=== PATIENT | female | born 1980 | race Hispanic/Latino ===

== ENCOUNTER 2022-09-07 10:08 | Emergency (ER) | payer MEDICAID, SELFPAY ==
[2022-09-07 10:54] VITALS: BP 145/81; PULSE 74; RESP 16; TEMP 36.2; O2SAT 98
[2022-09-07 11:15] LABS: Basophils Percent Auto 0.3 % (0.2-1.2); Eosinophils Absolute Auto 0.3 K/mm3 (0-0.3); Eosinophils Percent Auto 4.3 % (0-4.4); Hematocrit 42.2 % (37.0-47.0); Hemoglobin 13.6 g/dL (12.0-15.0); Immature Granulocyte Absolute 0.01 K/mm3 (0.00-0.031); Immature Granulocyte Percent A 0.1 % (0-0.5); Lymphocytes Percent Auto 29.8 % (18.3-44.2); Mean Corpuscular HGB Conc 32.2 g/dl (32-36); Mean Corpuscular Hemoglobin 26.7 pg (26-34); Mean Corpuscular Volume 82.9 fl (80-100); Mean Platelet Volume 9.7 fl (7.4-10.4); Monocytes Absolute Auto 0.5 K/mm3 (0.1-0.6); Neutrophils Absolute Auto 4.6 K/mm3 (1.3-6.7); Neutrophils Percent Auto 59.5 % (45.5-73.1); Platelet Count Result 368 k/mm3 (150-375); Red Blood Count 5.09 M/mm3 (4.2-5.4); Red Cell Distribution Width 12.2 % (11.5-14.5); White Blood Count 7.7 K/mm3 (4.5-10.0)
[2022-09-07 11:22] LABS: Alanine Aminotransferase 31 U/L (6-35); Albumin Level 4.2 g/dL (3.5-5.1); Alkaline Phosphatase 188 U/L (38-126); Anion Gap 6 mmol/L (8-16); Aspartate Amino Transferase 28 U/L (14-36); Bilirubin,Total 0.4 mg/dL (0.2-1.3); Blood Urea Nitrogen 14 mg/dL (7-17); Calcium 8.6 mg/dL (8.4-10.2); Carbon Dioxide 29 mmol/L (22-30); Chloride 101 mmol/L (98-107); Estimated CRCL calculation 144 ml/min; Estimated Glomerular Filt Rate > 60; Glucose 285 mg/dL (65-110); Magnesium 1.9 mg/dL (1.6-2.3); Phosphorus 3.6 mg/dL (2.5-4.5); Potassium 4.1 mmol/L (3.4-5.0); Sodium 136 mmol/L (137-145)
[2022-09-07 11:26] LABS: Beta-Hydroxybutyrate/Acetoacetate 0.19 mmol/L (0.02-0.27)
[2022-09-07 11:49] LABS: Hemoglobin A1C 11.6 % (<5.7)
[2022-09-07 12:31] VITALS: BP 137/75; PULSE 87; RESP 16; O2SAT 98
[2022-09-07] MEDS: ACETAMINOPHEN 325 MG TABLET 650 MG PO (13:14)
[2022-09-07 13:28] LABS: Appearance Urine Slightly Cloudy (Clear); Bilirubin Urine Negative (Negative); Blood Urine Negative (Negative); Color Urine Yellow (Yellow); Glucose Urine UA 2+ mg/dL (Negative); Ketones Urine 1+ mg/dL (Negative); Leukocyte Esterase Ur Trace LEU/UL (Negative); Nitrate Urine Positive (Negative); Protein Urine Trace mg/dL (Negative); Specific Grav Ur 1.015 (1.001-1.035); Urobilinogen Urine 0.2 mg/dL (<2.0); pH Urine 6.5 (5.0-9.0)
[2022-09-07 13:36] LABS: Bacteria Urine 3+ /hpf; Mucus Urine Moderate /lpf; RBC Urine 0-2 /hpf (0-2); Squamous Epithelial Cell Urine Occasional /hpf (Few); WBC Urine 0-3 /hpf
[2022-09-07 13:59] LABS: Add Urine Microscopic? YES
--- NOTE | 2022-09-07 14:03 | ED.GENADULT ---
HPI - General Adult General Chief complaint: Recheck/Abnormal Lab/Rx Stated complaint: ELEVATED SUGAR WANTS URINE CHECKED Time Seen by Provider: 09/07/22 12:31 Source: patient and appliance service representative Mode of arrival: ambulatory Limitations: language barrier History of Present Illness HPI narrative: 41-year-old Sinhala-speaking here blood sugar and urine check. Patient states that she is nondiabetic and she is on metformin ran out of her medication yesterday. Patient was admitted to the hospital in June and has not followed up with any primary doctor since then. She presently has no complaints. Related Data Allergies Allergy/AdvReac Type Severity Reaction Status Date / Time No Known Allergies Allergy Verified 09/07/22 10:53 Review of Systems Review of Systems: All systems reviewed & are unremarkable except as noted in HPI and below Constitutional: Constitutional: Reports no additional constitutional complaints Eyes: Eyes: Reports no additional eye complaints ENT: Reports system reviewed and no additional complaints, except as documented Cardiovascular: Cardiovascular: Reports no additional cardiovascular complaints Respiratory: Respiratory: Reports no additional respiratory complaints Gastrointestinal: Gastrointestinal: Reports no additional gastrointestinal complaints Genitourinary: Genitourinary: Reports no additional female genitourinary complaints Musculoskeletal: Musculoskeletal: Reports no additional musculoskeletal complaints Exam Narrative: GENERAL: Well-appearing, well-nourished, and in no acute distress. HEAD: Normocephalic, atraumatic. EYES: PERRLA and EOMI. NECK: Supple. CHEST: Clear to auscultation. No respiratory distress. HEART: Regular rate and rhythm. No murmur heard. Normal peripheral pulses. ABDOMEN: Soft, nontender, nondistended, normal active bowel sounds. EXTREMITIES: Normal range of motion. No edema. SKIN: Warm, dry, no rash. NEURO: No focal deficits. Alert and oriented x3. PSYCH: Normal mood and affect. Course Course Emergency Course: Notified patient about her lab work. Recommended to take antibiotic as prescribed Vital Signs Vital signs: Vital Signs Temperature 36.2 C L 09/07/22 10:54 Pulse Rate 74 09/07/22 10:54 Respiratory Rate 16 09/07/22 10:54 Blood Pressure 145/81 H 09/07/22 10:54 Pulse Oximetry 98 09/07/22 10:54 Temperature 36.2 C L 09/07/22 10:54 Pulse Rate 74 09/07/22 10:54 Respiratory Rate 16 09/07/22 10:54 Blood Pressure 145/81 H 09/07/22 10:54 Pulse Oximetry 98 09/07/22 10:54 Medical Decision Making Vital Signs Vital Signs: Vital Signs Temperature 36.2 C L 09/07/22 10:54 Pulse Rate 74 09/07/22 10:54 Respiratory Rate 16 09/07/22 10:54 Blood Pressure 145/81 H 09/07/22 10:54 Pulse Oximetry 98 09/07/22 10:54 Temperature 36.2 C L 09/07/22 10:54 Pulse Rate 74 09/07/22 10:54 Respiratory Rate 16 09/07/22 10:54 Blood Pressure 145/81 H 09/07/22 10:54 Pulse Oximetry 98 09/07/22 10:54 Lab Data 09/07/22 11:02 09/07/22 11:02 Labs: Lab Results 09/07/22 09/07/22 09/07/22 Range/Units 11:02 11:02 11:02 WBC 7.7 (4.5-10.0) K/mm3 RBC 5.09 (4.2-5.4) M/mm3 Hgb 13.6 (12.0-15.0) g/dL Hct 42.2 (37.0-47.0) % MCV 82.9 (80-100) fl MCH 26.7 (26-34) pg MCHC 32.2 (32-36) g/dl RDW 12.2 (11.5-14.5) % Plt Count 368 (150-375) k/mm3 MPV 9.7 (7.4-10.4) fl Immature Gran % (Auto) 0.1 (0-0.5) % Neut % (Auto) 59.5 (45.5-73.1) % Lymph % (Auto) 29.8 (18.3-44.2) % [place] % (Auto) 6.0 (2.6-8.5) % Eos % (Auto) 4.3 (0-4.4) % Baso % (Auto) 0.3 (0.2-1.2) % Lymph # (Auto) 2.30 (0.9-3.2) K/mm3 [place] # (Auto) 0.5 (0.1-0.6) K/mm3 Eos # (Auto) 0.3 (0-0.3) K/mm3 Baso # (Auto) 0.0 (0.0-0.1) K/mm3 Abs Immat Gran (auto) 0.01 (0.00-0.031) K/mm3 Absolute Neuts (auto) 4.6 (1.3-6.7) K/mm3 Abso
[2022-09-07 14:18] VITALS: BP 144/90; PULSE 76; RESP 16; O2SAT 99
[2022-09-07 15:59] LABS: Glucose Point of Care 268 mg/dl (65-105)
== END 2022-09-07 14:18 | disposition home or self-care (01) ==
PROVIDERS: Emergency Medicine; Emergency Provider Family Medicine
DX: E11.65 Type 2 diabetes mellitus with hyperglycemia (principal); N39.0 Urinary tract infection, site not specified; Z79.84 Long term (current) use of oral hypoglycemic drugs
CPT/HCPCS: 36415; 80053; 81001; 82010; 82948; 83036; 83735; 84100; 85025; 99283; A9270

== ENCOUNTER 2023-01-04 00:53 | Emergency (ER) | payer MEDICAID, SELFPAY ==
[2023-01-04] VITALS (22 sets, daily range): BP systolic 105–141; BP diastolic 59–85; PULSE 70–88; RESP 12–20; TEMP 36.8; O2SAT 93–99
--- NOTE | ~2023-01-04 | CT_ITS ---
EXAMINATION: CT abdomen pelvis w con DATE: 01/04/2023 03:56 INDICATION: Right lower quadrant abdominal pain and fevers TECHNIQUE: Computed tomography (CT) of the abdomen and pelvis was performed with 100 mL Omnipaque-350 intravenous contrast. Automated exposure control and iterative reconstruction technique were employe d. The dose-length product was 1136.71 mGy-cm. COMPARISON: None FINDINGS: Mild mosaic attenuation of the lung bases likely reflecting expiratory phase of imaging. Heart size i s normal. No pericardial or pleural effusion. Liver, gallbladder, spleen, pancreas, bilateral adrenal glands and kidneys are normal. Bladder, anteverted uterus and bladder are normal. Small phlebolith a nd 1.5 cm cyst at the left adnexa. Bowels including the appendix are normal. No free intraperitoneal gas or fluid. No pathologically enlarged abdominal or pelvic lymphadenopathy. Mild bilateral sacroili itis. IMPRESSION: 1. Normal appendix. No acute intra-abdominal/pelvic process. Reviewed, dictated and finalized at location A.
[2023-01-04 02:25] LABS: Appearance Urine Cloudy (Clear); Bacteria Urine None Seen /hpf; Bilirubin Urine Negative (Negative); Blood Urine Negative (Negative); Color Urine Yellow (Yellow); Glucose Urine UA 3+ mg/dL (Negative); Ketones Urine Negative (Negative); Leukocyte Esterase Ur Negative LEU/UL (Negative); Nitrate Urine Negative (Negative); Non Pathogenic Casts 0-2; Protein Urine Negative (Negative); RBC Urine 0-2 /hpf (0-2); Specific Grav Ur 1.022 (1.001-1.035); Squamous Epithelial Cell Urine None seen /hpf (Few); WBC Urine 0-5 /hpf
[2023-01-04 02:34] LABS: Add Urine Microscopic? YES
[2023-01-04] MEDS: SODIUM CHLORIDE 0.9% IV 1,000 ML 999 ML IV CONT (02:47)
[2023-01-04] MEDS: ONDANSETRON INJ 4 MG/2 ML VIAL IV PUSH (02:49)
[2023-01-04 02:56] LABS: Basophils Percent Auto 0.2 % (0.2-1.2); Eosinophils Absolute Auto 0.2 K/mm3 (0-0.3); Eosinophils Percent Auto 2.1 % (0-4.4); Hematocrit 42.9 % (37.0-47.0); Hemoglobin 14.2 g/dL (12.0-15.0); Immature Granulocyte Absolute 0.02 K/mm3 (0.00-0.031); Immature Granulocyte Percent A 0.2 % (0-0.5); Lymphocytes Absolute Auto 1.04 K/mm3 (0.9-3.2); Lymphocytes Percent Auto 11.5 % (18.3-44.2); Mean Corpuscular HGB Conc 33.1 g/dl (32-36); Mean Corpuscular Hemoglobin 27.7 pg (26-34); Mean Corpuscular Volume 83.8 fl (80-100); Mean Platelet Volume 9.7 fl (7.4-10.4); Monocytes Absolute Auto 0.6 K/mm3 (0.1-0.6); Monocytes Percent Auto 6.6 % (2.6-8.5); Neutrophils Absolute Auto 7.2 K/mm3 (1.3-6.7); Neutrophils Percent Auto 79.4 % (45.5-73.1); Platelet Count Result 336 k/mm3 (150-375); Red Blood Count 5.12 M/mm3 (4.2-5.4); Red Cell Distribution Width 13.2 % (11.5-14.5)
--- NOTE | 2023-01-04 03:03 | ED.GENADULT ---
HPI - General Adult General Chief complaint: Urogenital-Female Stated complaint: flank pain Time Seen by Provider: 01/04/23 02:14 Related Data Allergies Allergy/AdvReac Type Severity Reaction Status Date / Time No Known Allergies Allergy Verified 09/07/22 10:53 Course Vital Signs Vital signs: Vital Signs Temperature 98.2 F 01/04/23 00:54 Pulse Rate 88 01/04/23 00:54 Respiratory Rate 20 01/04/23 00:54 Blood Pressure 130/73 01/04/23 00:54 Pulse Oximetry 99 01/04/23 00:54 Oxygen Delivery Room Air 01/04/23 00:54 Temperature 98.2 F 01/04/23 00:54 Pulse Rate 88 01/04/23 00:54 Respiratory Rate 20 01/04/23 00:54 Blood Pressure 130/73 01/04/23 00:54 Pulse Oximetry 99 01/04/23 00:54 Oxygen Delivery Room Air 01/04/23 00:54 Medical Decision Making Vital Signs Vital Signs: Vital Signs Temperature 98.2 F 01/04/23 00:54 Pulse Rate 88 01/04/23 00:54 Respiratory Rate 20 01/04/23 00:54 Blood Pressure 130/73 01/04/23 00:54 Pulse Oximetry 99 01/04/23 00:54 Oxygen Delivery Room Air 01/04/23 00:54 Temperature 98.2 F 01/04/23 00:54 Pulse Rate 88 01/04/23 00:54 Respiratory Rate 20 01/04/23 00:54 Blood Pressure 130/73 01/04/23 00:54 Pulse Oximetry 99 01/04/23 00:54 Oxygen Delivery Room Air 01/04/23 00:54 Lab Data 01/04/23 02:50 01/04/23 02:50 Labs: Lab Results 01/04/23 01/04/23 01/04/23 Range/Units 02:14 02:14 02:50 WBC 9.0 (4.5-10.0) K/mm3 RBC 5.12 (4.2-5.4) M/mm3 Hgb 14.2 (12.0-15.0) g/dL Hct 42.9 (37.0-47.0) % MCV 83.8 (80-100) fl MCH 27.7 (26-34) pg MCHC 33.1 (32-36) g/dl RDW 13.2 (11.5-14.5) % Plt Count 336 (150-375) k/mm3 MPV 9.7 (7.4-10.4) fl Immature Gran % (Auto) 0.2 (0-0.5) % Neut % (Auto) 79.4 H (45.5-73.1) % Lymph % (Auto) 11.5 L (18.3-44.2) % [place] % (Auto) 6.6 (2.6-8.5) % Eos % (Auto) 2.1 (0-4.4) % Baso % (Auto) 0.2 (0.2-1.2) % Lymph # (Auto) 1.04 (0.9-3.2) K/mm3 [place] # (Auto) 0.6 (0.1-0.6) K/mm3 Eos # (Auto) 0.2 (0-0.3) K/mm3 Baso # (Auto) 0.0 (0.0-0.1) K/mm3 Abs Immat Gran (auto) 0.02 (0.00-0.031) K/mm3 Absolute Neuts (auto) 7.2 H (1.3-6.7) K/mm3 Absolute Nucleated RBC 0.0 (0.0-0.012) K/mm3 Nucleated RBC % 0.0 (0.0-0.2) % Sodium Potassium Chloride Carbon Dioxide Anion Gap BUN Creatinine Estim Creat Clear Calc Estimated GFR Glucose Calcium Total Bilirubin AST ALT Alkaline Phosphatase Total Protein Albumin Lipase Urine Color Yellow (Yellow) Urine Appearance Cloudy H (Clear) Urine pH 8.0 (5.0-9.0) Ur Specific [place] 1.022 (1.001-1.035) Urine Protein Negative (Negative) mg/dL Urine Glucose (UA) 3+ H (Negative) mg/dL Urine Ketones Negative (Negative) mg/dL Ur Blood (Man) Negative (Negative) Urine Nitrate Negative (Negative) Urine Bilirubin Negative (Negative) Urine Urobilinogen 1.0 (<2.0) mg/dL Leukocyte Esterase Rfl Negative (Negative) JABARI/UL Urine RBC 0-2 (0-2) /hpf Urine WBC 0-5 /hpf Ur Squamous Epith Cells None seen (Few) /hpf Urine Bacteria None seen /hpf Urine Casts 0-2 Urine Test Pending Influenza A (RT-PCR) Influenza B (RT-PCR) SARS-CoV-2 RNA (RT-PCR) 01/04/23 01/04/23 01/04/23 Range/Units 02:50 02:50 02:50 WBC (4.5-10.0) K/mm3 RBC (4.2-5.4) M/mm3 Hgb (12.0-15.0) g/dL Hct (37.0-47.0) % MCV (80-100) fl MCH (26-34) pg MCHC (32-36) g/dl RDW (11.5-14.5) % Plt Count (150-375) k/mm3 MPV (7.4-10.4) fl Immature Gran % (Auto) (0-0.5) % Neut % (Auto) (45.5-73.1) % Lymph % (Auto) (18.3-44.2) % [place] % (Auto) (2.6-8.5) % Eos % (Auto) (0-4.4) % Baso % (Auto) (0.2-1.2
--- NOTE | 2023-01-04 03:04 | ED.FEMALEGU ---
HPI - Female Genitourinary General Chief complaint: Urogenital-Female <Hiral Roque PA-C - Last Filed: 01/04/23 03:07> Stated complaint: flank pain <Hiral Roque PA-C - Last Filed: 01/04/23 03:07> Time Seen by Provider: 01/04/23 02:14 <Hiral Roque PA-C - Last Filed: 01/04/23 03:07> History of Present Illness HPI Narrative: Patient is a 42-year-old female with a history of diabetes here due to multiple medical complaints. Patient states she has a diffuse frontal headache that developed gradually throughout the day, pain in her right flank and right lower quadrant, and nausea. Patient states that she has felt unwell all day, she took Tylenol this morning without relief of her symptoms. She reports subjective fevers but has not yet taken her temperature. She has a history of diabetes and has not taken her metformin for the past 4 months because she does not have a primary doctor to refill it. She denies any shortness of breath, cough, congestion, upper respiratory infectious symptoms. <ESTIVEN Jack Last Filed: 01/04/23 03:07> Related Data Allergies/Adverse reactions: Allergies Allergy/AdvReac Type Severity Reaction Status Date / Time No Known Allergies Allergy Verified 09/07/22 10:53 <ESTIVEN Jack Last Filed: 01/04/23 03:07> Review of Systems Review of Systems: All systems reviewed & are unremarkable except as noted in HPI and below <ESTIVEN Jack Last Filed: 01/04/23 03:07> Exam Narrative: APPEARANCE: Well appearing, no pain in distress, well-nourished. Head: Normocephalic and atraumatic. EYES: PERRLA/EOMI, conjunctivae clear NOSE: No nasal drainage EARS: External ear normal in appearance THROAT: Oropharynx is clear. Mucous membranes are moist. NECK: Supple. No adenopathy, no masses. RESPIRATORY: Airway patent, respirations nonlabored. Clear to auscultation bilaterally, no rales, rhonchi, wheezing. CARDIOVASCULAR: Regular rate and rhythm without murmurs, rubs, or gallops. ABDOMINAL: Tender to palpation in the right lower quadrant with moderate guarding but no rebound tenderness. No CVA tenderness. MUSCULOSKELETAL: Extremities are warm and well-perfused. Moves all extremities well. No edema. NEURO: Normal speech. No focal neurologic deficits. SKIN: Skin is warm and dry. No rashes. PSYCHIATRIC: Normal affect/mood. <Hiral Roque PA-C - Last Filed: 01/04/23 03:07> Course Vital Signs Vital signs: Vital Signs Temperature 98.2 F 01/04/23 00:54 Pulse Rate 88 01/04/23 00:54 Respiratory Rate 20 01/04/23 00:54 Blood Pressure 130/73 01/04/23 00:54 Pulse Oximetry 99 01/04/23 00:54 Oxygen Delivery Room Air 01/04/23 00:54 Temperature 98.2 F 01/04/23 00:54 Pulse Rate 78 01/04/23 07:33 Respiratory Rate 12 01/04/23 07:33 Blood Pressure 114/65 01/04/23 07:33 Pulse Oximetry 98 01/04/23 07:33 Oxygen Delivery Room Air 01/04/23 00:54 <Hiral Roque PA-C - Last Filed: 01/04/23 03:07> Vital Signs Temperature 98.2 F 01/04/23 00:54 Pulse Rate 88 01/04/23 00:54 Respiratory Rate 20 01/04/23 00:54 Blood Pressure 130/73 01/04/23 00:54 Pulse Oximetry 99 01/04/23 00:54 Oxygen Delivery Room Air 01/04/23 00:54 Temperature 98.2 F 01/04/23 00:54 Pulse Rate 78 01/04/23 07:33 Respiratory Rate 12 01/04/23 07:33 Blood Pressure 114/65 01/04/23 07:33 Pulse Oximetry 98 01/04/23 07:33 Oxygen Delivery Room Air 01/04/23 00:54 <Louis Strickland MD - Last Filed: 01/04/23 08:03> MDM - Female Genitourinary MDM Narrative Medical decision making narrative: 42-year-old female here due to headache, nausea, fevers at home. She is nontoxic in appearance and has normal vital signs, she is afebrile here. She has no nuchal rigidity on exam or neurologic deficits to suggest more concerning etiology of headache. She is tender
[2023-01-04 03:06] LABS: Pregnancy On Board Control Positive; Urine Pregnancy Test Negative
[2023-01-04 03:20] LABS: Alanine Aminotransferase 28 U/L (6-35); Alkaline Phosphatase 176 U/L (38-126); Anion Gap 7 mmol/L (8-16); Aspartate Amino Transferase 29 U/L (14-36); Bilirubin,Total 0.5 mg/dL (0.2-1.3); Blood Urea Nitrogen 9 mg/dL (7-17); Calcium 8.4 mg/dL (8.4-10.2); Carbon Dioxide 26 mmol/L (22-30); Chloride 99 mmol/L (98-107); Estimated CRCL calculation 145 ml/min; Estimated Glomerular Filt Rate > 60; Glucose 335 mg/dL (65-110); Lipase 77 U/L (23-300); Potassium 3.9 mmol/L (3.4-5.0); Sodium 132 mmol/L (137-145)
[2023-01-04 03:31] LABS: Influenza A QL RT-PCR Negative (Negative); Influenza B QL RT-PCR Negative (Negative); SARS-CoV-2 RNA PCR Negative
[2023-01-04] MEDS: HYDROcodone/acetaminophen (*CRX) 5-325 MG TABLET 2 TAB PO (04:27)
== END 2023-01-04 09:00 | disposition home or self-care (01) ==
PROVIDERS: Physician Assistant; Emergency Provider Emergency Medicine
DX: J02.9 Acute pharyngitis, unspecified (principal); E11.9 Type 2 diabetes mellitus without complications; Z20.822 Contact with and (suspected) exposure to COVID-19
CPT/HCPCS: 36415; 74177; 80053; 81001; 81025; 83690; 85025; 87636; 96361; 96365; 96375; 99284; A9270; J0131; J2405; J7030; Q9967

== ENCOUNTER 2023-03-30 18:10 | Emergency (ER) | payer MEDICAID, SELFPAY ==
--- NOTE | ~2023-03-30 | CT_ITS ---
EXAMINATION: CT abdomen pelvis w con DATE: 03/30/2023 21:11 INDICATION: RUQ/R flank pain TECHNIQUE: Computed tomography (CT) of the abdomen and pelvis was performed with 100 mL Omnipaque-350 intravenous contrast. Automated exposure control and iterative reconstruction technique were employe d. The dose-length product was 1338.52 mGy-cm. COMPARISON: 01/04/2023. FINDINGS: Lower thorax: Mild cardiomegaly. Small hiatal hernia. Dilated central pulmonary arteries, as can be s een with pulmonary arterial hypertension. Liver: Normal. Biliary/Gallbladder: Gallbladder is normal. No bile duct dilation. Pancreas: No mass or duct dilation. Spleen: Normal. Adrenals:No mass. Kidneys: No mass, stone, or hydronephrosis. GI tract: Mild distal esophageal edema. Small hiatal hernia No small or large bowel dilation. Normal appendix. Mesentery/Peritoneum: No ascites, mass, or free air. Retroperitoneum: No mass. Pelvis: 8 mm calcification, likely with an associated 1.5 cm cyst, presumably within the left ovary P elvic organs are otherwise within normal limits. Soft Tissues: Soft tissues and body wall unremarkable. Bones: No acute osseous finding. IMPRESSION: Mild esophagitis. No other acute abdominopelvic process detected. Possible small left ovarian dermoid , consider outpatient pelvic ultrasound for more complete characterization. Reviewed, dictated and finalized at [facility]. IMPRESSION: Mild esophagitis. No other acute abdominopelvic process detected. Possible smal l left ovarian dermoid, consider outpatient pelvic ultrasound for more complete characterization.
[2023-03-30 18:34] VITALS: BP 148/72; PULSE 88; RESP 16; TEMP 36.3; O2SAT 99
[2023-03-30 19:43] LABS: Appearance Urine Clear (Clear); Bilirubin Urine Negative (Negative); Blood Urine Negative (Negative); Color Urine Yellow (Yellow); Glucose Urine UA 3+ mg/dL (Negative); Ketones Urine Negative (Negative); Leukocyte Esterase Ur Negative LEU/UL (Negative); Nitrate Urine Negative (Negative); Protein Urine Negative (Negative); pH Urine 5.5 (5.0-9.0)
[2023-03-30 19:54] LABS: Specific Grav Ur 1.039 (1.001-1.035)
[2023-03-30 19:55] LABS: Add Urine Microscopic? NO; Pregnancy On Board Control Positive; Urine Pregnancy Test Negative
--- NOTE | 2023-03-30 20:16 | ED.FEMALEGU ---
HPI - Female Genitourinary General Chief complaint: Urogenital-Female Stated complaint: flank pain Time Seen by Provider: 03/30/23 19:17 History of Present Illness HPI Narrative: Patient is a 42-year-old female presenting with abdominal pain. Patient states that for the last 3 weeks she has had right upper quadrant pain that goes into her right flank. States that it feels similarly to an episode that she had earlier this year that was a UTI. States that she has also had a lot of dark smelly urine. States that she felt nauseated the other day but has not had any vomiting. States that she has been constipated. No fevers, headache, chest pain, shortness of breath, cough, leg swelling. Patient is Colombian-speaking and history was obtained using an foreign language interpreter. Related Data Allergies Allergy/AdvReac Type Severity Reaction Status Date / Time No Known Allergies Allergy Verified 09/07/22 10:53 Review of Systems Review of Systems: All systems reviewed & are unremarkable except as noted in HPI and below Exam Narrative: GENERAL: Well-appearing, well-nourished, and in no acute distress. HEAD: Normocephalic, atraumatic. EYES: PERRLA and EOMI. ENT: Nares clear, no rhinorrhea or epistaxis. Mucous membranes moist. NECK: Supple. CHEST: Clear to auscultation. No respiratory distress. HEART: Regular rate and rhythm ABDOMEN: Soft, + mild right upper quadrant tenderness as well as right flank tenderness, no guarding or rebound EXTREMITIES: Normal range of motion. No edema. SKIN: Warm, dry, no rash. NEURO: No focal deficits. Alert and oriented x3. PSYCH: Normal mood and affect. Course Vital Signs Vital signs: Vital Signs Temperature 97.4 F L 03/30/23 18:34 Pulse Rate 88 03/30/23 18:34 Respiratory Rate 16 03/30/23 18:34 Blood Pressure 148/72 H 03/30/23 18:34 Pulse Oximetry 99 03/30/23 18:34 Oxygen Delivery Room Air 03/30/23 18:34 Temperature 97.4 F L 03/30/23 18:34 Pulse Rate 78 03/30/23 23:23 Respiratory Rate 16 03/30/23 23:23 Blood Pressure 149/86 H 03/30/23 23:23 Pulse Oximetry 98 03/30/23 23:23 Oxygen Delivery Room Air 03/30/23 18:34 MDM - Female Genitourinary MDM Narrative Medical decision making narrative: Patient is a 42-year-old female presenting with several weeks of intermittent right upper quadrant and right flank pain. Vitals within normal limits. Exam remarkable for the above. She is a bit tender on exam in her right upper quadrant as well as her right flank. Plan for blood work, CT abdomen pelvis, fluids, pain control. Blood work with hyperglycemia. No other abnormalities. No evidence of DKA. Renal function is normal. Lipase is normal. CT abdomen pelvis with esophagitis. On reevaluation, the patient is resting comfortably. She denies any pain at this time. She feels comfortable going home. We will get her started on Pepcid. Advise close PCP follow-up to ensure improvement in her symptoms and also try to get her blood sugars better under control. Appropriate return precautions given. Patient voiced understanding and is agreeable with plan. Discharged in stable condition. Differential Diagnosis Differential diagnosis: Likely urinary tract infection, cystitis and other (abdominal pain, cholecystitis, appendicitis, esophagitis, gastritis) Medical Records Attestation: I reviewed the patient's medical records. Lab Data Attestation: I reviewed the patient's lab results. 03/30/23 20:29 03/30/23 20:29 Labs: Lab Results 03/30/23 03/30/23 Range/Units 19:30 20:29 WBC 8.3 (4.5-10.0) K/mm3 RBC 5.02 (4.2-5.4) M/mm3 Hgb 13.9 (12.0-15.0) g/dL Hct 42.6 (37.0-47.0) % MCV 84.9 (80-100) fl MCH 27.7 (26-34) pg MCHC 32.6 (32-36) g/dl RDW 12.9 (11.5-14.5) % Plt Count 351 (150-375) k/mm3 MPV 9.4 (7.4-10.4) fl Immature Gran % (Auto) 0.2 (0-0.5) % Neut % (Auto) 46.9 (45.5-73.1) % Lymph % (Auto
[2023-03-30 20:35] LABS: Basophils Percent Auto 0.1 % (0.2-1.2); Eosinophils Absolute Auto 0.7 K/mm3 (0-0.3); Eosinophils Percent Auto 8.8 % (0-4.4); Hematocrit 42.6 % (37.0-47.0); Hemoglobin 13.9 g/dL (12.0-15.0); Immature Granulocyte Absolute 0.02 K/mm3 (0.00-0.031); Immature Granulocyte Percent A 0.2 % (0-0.5); Lymphocytes Absolute Auto 3.19 K/mm3 (0.9-3.2); Lymphocytes Percent Auto 38.2 % (18.3-44.2); Mean Corpuscular HGB Conc 32.6 g/dl (32-36); Mean Corpuscular Hemoglobin 27.7 pg (26-34); Mean Corpuscular Volume 84.9 fl (80-100); Mean Platelet Volume 9.4 fl (7.4-10.4); Monocytes Absolute Auto 0.5 K/mm3 (0.1-0.6); Monocytes Percent Auto 5.8 % (2.6-8.5); Neutrophils Absolute Auto 3.9 K/mm3 (1.3-6.7); Neutrophils Percent Auto 46.9 % (45.5-73.1); Platelet Count Result 351 k/mm3 (150-375); Red Blood Count 5.02 M/mm3 (4.2-5.4); Red Cell Distribution Width 12.9 % (11.5-14.5); White Blood Count 8.3 K/mm3 (4.5-10.0)
[2023-03-30] MEDS: SODIUM CHLORIDE 0.9% IV 1,000 ML 999 ML IV CONT (20:39)
[2023-03-30] MEDS: KETOROLAC 15 MG/ML VIAL (*BKC) IV PUSH (20:39)
[2023-03-30 20:45] LABS: Alanine Aminotransferase 27 U/L (6-35); Albumin Level 4.1 g/dL (3.5-5.1); Alkaline Phosphatase 137 U/L (38-126); Anion Gap 6 mmol/L (8-16); Aspartate Amino Transferase 29 U/L (14-36); Bilirubin,Total 0.2 mg/dL (0.2-1.3); Blood Urea Nitrogen 12 mg/dL (7-17); Carbon Dioxide 30 mmol/L (22-30); Chloride 98 mmol/L (98-107); Estimated CRCL calculation 128 ml/min; Estimated Glomerular Filt Rate > 60; Glucose 351 mg/dL (65-110); Lipase 92 U/L (23-300); Potassium 3.6 mmol/L (3.4-5.0); Sodium 134 mmol/L (137-145)
[2023-03-30] MEDS: FAMOTIDINE 20 MG TABLET PO (22:46)
[2023-03-30 23:23] VITALS: BP 149/86; PULSE 78; RESP 16; O2SAT 98
== END 2023-03-30 23:24 | disposition home or self-care (01) ==
PROVIDERS: Emergency Provider Emergency Medicine
DX: K20.90 Esophagitis, unspecified without bleeding (principal)
CPT/HCPCS: 36415; 74177; 80053; 81003; 81025; 83690; 85025; 96361; 96374; 99284; A9270; J1885; J7030; Q9967

== ENCOUNTER 2023-04-26 07:39 | Emergency (ER) | payer MEDICAID, SELFPAY ==
[2023-04-26 07:42] VITALS: BP 125/75; PULSE 69; RESP 16; TEMP 36.6; O2SAT 100
[2023-04-26 08:00] LABS: Glucose Point of Care 250 mg/dl (65-105)
[2023-04-26 08:17] VITALS: BP 123/78; PULSE 65; RESP 16; O2SAT 97
[2023-04-26 08:25] LABS: Appearance Urine Cloudy (Clear); Bacteria Urine 4+ /hpf; Bilirubin Urine 1+ (Negative); Blood Urine Negative (Negative); Color Urine Dark Yellow (Yellow); Glucose Urine UA 3+ mg/dL (Negative); Ketones Urine Trace mg/dL (Negative); Leukocyte Esterase Ur 1+ LEU/UL (Negative); Need Manual Microscopic Reviewed; Nitrate Urine Positive (Negative); Protein Urine 1+ mg/dL (Negative); Squamous Epithelial Cell Urine Moderate /hpf (Few); WBC Urine 51-100 /hpf; pH Urine 5.5 (5.0-9.0)
[2023-04-26 08:27] LABS: Specific Grav Ur 1.036 (1.001-1.035)
[2023-04-26 08:28] LABS: Add Urine Microscopic? YES
[2023-04-26] MEDS: SODIUM CHLORIDE 0.9% IV 1,000 ML 999 ML IV CONT (08:34)
[2023-04-26 08:36] LABS: Basophils Percent Auto 0.3 % (0.2-1.2); Eosinophils Absolute Auto 0.3 K/mm3 (0-0.3); Eosinophils Percent Auto 4.1 % (0-4.4); Hematocrit 40.8 % (37.0-47.0); Hemoglobin 13.3 g/dL (12.0-15.0); Immature Granulocyte Absolute 0.02 K/mm3 (0.00-0.031); Immature Granulocyte Percent A 0.3 % (0-0.5); Lymphocytes Absolute Auto 3.64 K/mm3 (0.9-3.2); Lymphocytes Percent Auto 50.1 % (18.3-44.2); Mean Corpuscular HGB Conc 32.6 g/dl (32-36); Mean Corpuscular Hemoglobin 27.7 pg (26-34); Mean Platelet Volume 9.5 fl (7.4-10.4); Monocytes Absolute Auto 0.4 K/mm3 (0.1-0.6); Monocytes Percent Auto 5.8 % (2.6-8.5); Neutrophils Absolute Auto 2.9 K/mm3 (1.3-6.7); Neutrophils Percent Auto 39.4 % (45.5-73.1); Platelet Count Result 339 k/mm3 (150-375); Red Cell Distribution Width 13.2 % (11.5-14.5); White Blood Count 7.3 K/mm3 (4.5-10.0)
--- NOTE | 2023-04-26 08:44 | ED.FEMALEGU ---
HPI - Female Genitourinary General Chief complaint: Urogenital-Female Stated complaint: need rx/walker/burning with urination Time Seen by Provider: 04/26/23 08:43 Source: patient History of Present Illness HPI Narrative: 42 years old female presented decannulation presents with burning urination for the last 10 days. She denies any fever, chills, nausea or vomiting, abdominal pain or back pain. Related Data Allergies Allergy/AdvReac Type Severity Reaction Status Date / Time No Known Allergies Allergy Verified 04/26/23 07:41 Review of Systems Review of Systems: All systems reviewed & are unremarkable except as noted in HPI and below Exam Narrative: General appearance: Well-developed, well-nourished Skin: Normal color Head: Normocephalic, nontraumatic Eyes: Clear conjunctiva ENT: Oropharynx normal, ears normal, nose normal Neck: Supple, nontender Chest and respiratory: Airway patent, no respiratory distress, no accessory muscle use Heart: Regular rate/rhythm Abdomen: Soft, nontender, no organomegaly, quiet bowel sounds Vascular: Normal peripheral pulses, normal capillary refill. Musculoskeletal: Normal range of motion, nontender back Neurologic: Alert and oriented ?3, DOG BREEDER is normal as tested, no gross motor deficit Course Vital Signs Vital signs: Vital Signs Temperature 36.6 C 04/26/23 07:42 Pulse Rate 69 04/26/23 07:42 Respiratory Rate 16 04/26/23 07:42 Blood Pressure 125/75 04/26/23 07:42 Pulse Oximetry 100 04/26/23 07:42 Oxygen Delivery Room Air 04/26/23 07:42 Temperature 36.6 C 04/26/23 07:42 Pulse Rate 61 04/26/23 09:14 Respiratory Rate 16 04/26/23 09:14 Blood Pressure 133/76 04/26/23 09:14 Pulse Oximetry 98 04/26/23 09:14 Oxygen Delivery Room Air 04/26/23 07:42 MDM - Female Genitourinary MDM Narrative Medical decision making narrative: Patient presents with burning urination for the last few days, is diabetic, ran out of her metformin. Work-up today include CBC, CMP, UA showed severe urinary tract infection, 1 g of Rocephin IV given, 1 L of IV fluid given, patient to be discharged on Cipro 500 twice daily for 7 days. Metformin refill 1000 mg twice daily. Differential Diagnosis Differential diagnosis: Likely urinary tract infection and cystitis Medical Records Attestation: I reviewed the patient's medical records. Lab Data Attestation: I reviewed the patient's lab results. 04/26/23 08:28 04/26/23 08:28 Labs: Lab Results 04/26/23 04/26/23 04/26/23 Range/Units 07:57 08:01 08:28 WBC 7.3 (4.5-10.0) K/mm3 RBC 4.80 (4.2-5.4) M/mm3 Hgb 13.3 (12.0-15.0) g/dL Hct 40.8 (37.0-47.0) % MCV 85.0 (80-100) fl MCH 27.7 (26-34) pg MCHC 32.6 (32-36) g/dl RDW 13.2 (11.5-14.5) % Plt Count 339 (150-375) k/mm3 MPV 9.5 (7.4-10.4) fl Immature Gran % (Auto) 0.3 (0-0.5) % Neut % (Auto) 39.4 L (45.5-73.1) % Lymph % (Auto) 50.1 H (18.3-44.2) % [place] % (Auto) 5.8 (2.6-8.5) % Eos % (Auto) 4.1 (0-4.4) % Baso % (Auto) 0.3 (0.2-1.2) % Lymph # (Auto) 3.64 H (0.9-3.2) K/mm3 [place] # (Auto) 0.4 (0.1-0.6) K/mm3 Eos # (Auto) 0.3 (0-0.3) K/mm3 Baso # (Auto) 0.0 (0.0-0.1) K/mm3 Abs Immat Gran (auto) 0.02 (0.00-0.031) K/mm3 Absolute Neuts (auto) 2.9 (1.3-6.7) K/mm3 Absolute Nucleated RBC 0.0 (0.0-0.012) K/mm3 Nucleated RBC % 0.0 (0.0-0.2) % Sodium 135 L (137-145) mmol/L Potassium 3.6 (3.4-5.0) mmol/L Chloride 100 (98-107) mmol/L Carbon Dioxide 28 (22-30) mmol/L Anion Gap 7 L (8-16) mmol/L BUN 13 (7-17) mg/dL Creatinine
[2023-04-26 08:47] LABS: Alanine Aminotransferase 27 U/L (6-35); Albumin Level 3.9 g/dL (3.5-5.1); Alkaline Phosphatase 143 U/L (38-126); Anion Gap 7 mmol/L (8-16); Aspartate Amino Transferase 27 U/L (14-36); Bilirubin,Total 0.5 mg/dL (0.2-1.3); Blood Urea Nitrogen 13 mg/dL (7-17); Calcium 8.3 mg/dL (8.4-10.2); Carbon Dioxide 28 mmol/L (22-30); Chloride 100 mmol/L (98-107); Estimated Glomerular Filt Rate > 60; Glucose 267 mg/dL (65-110); Potassium 3.6 mmol/L (3.4-5.0); Sodium 135 mmol/L (137-145)
[2023-04-26 09:14] VITALS: BP 133/76; PULSE 61; RESP 16; O2SAT 98
[2023-04-26 09:52] VITALS: BP 125/79; PULSE 62; RESP 16; O2SAT 95
== END 2023-04-26 09:57 | disposition home or self-care (01) ==
PROVIDERS: Emergency Provider Emergency Medicine
DX: N39.0 Urinary tract infection, site not specified (principal); E11.69 Type 2 diabetes mellitus with other specified complication; Z91.148 Patient's other noncompliance with medication regimen for other reason; T38.3X6A Underdosing of insulin and oral hypoglycemic [antidiabetic] drugs, initial encounter
CPT/HCPCS: 36415; 80053; 81001; 81025; 82948; 85025; 87077; 87086; 87186; 96361; 96365; 99284; J0696; J7030

== ENCOUNTER 2023-06-28 15:30 | Outpatient (CLI) | payer MEDICAID, SELFPAY ==
--- NOTE | ~2023-06-28 | XR_ITS ---
EXAMINATION: XR knee RT 3V DATE: 06/28/2023 16:01 INDICATION: Right knee pain. TECHNIQUE: 3 views of right knee including standing views were obtained. COMPARISON: None. FINDINGS: Bone alignment is normal. No fracture. There is mild tricompartmental osteoarthritis. There is a small knee joint effusion. IMPRESSION: 1. Mild right knee osteoarthritis. 2. Small right knee joint effusion. Reviewed, dictated and finalized at location E.
== END 2023-06-28 15:31 | disposition home or self-care (01) ==
PROVIDERS: PCP Physician Assistant; Visit Provider Physician Assistant
DX: M17.11 Unilateral primary osteoarthritis, right knee (principal); M25.461 Effusion, right knee
CPT/HCPCS: 73562

== ENCOUNTER 2024-10-23 11:39 | Emergency (ER) | payer OTHER, SELFPAY ==
--- NOTE | ~2024-10-23 | XR_ITS ---
EXAMINATION: XR lumbar spine 2-3V DATE: 10/23/2024 15:42 INDICATION: Back pain. Fall. TECHNIQUE: 3 views of lumbar spine were obtained. COMPARISON: None. FINDINGS: Alignment is normal. Vertebral body heights and intervertebral disc heights are normal. The facet joints are unremarkable. IMPRESSION: 1. Normal lumbar spine. Reviewed, dictated and finalized at location B. [employer] PROFESSOR OF COUNSELING IMPRESSION: 1. Normal lumbar spine.
--- NOTE | ~2024-10-23 | XR_ITS ---
EXAMINATION: XR sacrum coccyx min 2V DATE: 10/23/2024 15:42 INDICATION: Back pain. Fall. TECHNIQUE: 3 views of the sacrum and coccyx were obtained. COMPARISON: None. FINDINGS: Alignment is normal. No fracture. There is mild osteoarthritis of the sacroiliac joints. IMPRESSION: 1. No fracture. Reviewed, dictated and finalized at location B. CTOR OF FINANCIAL REPORTING IMPRESSION: 1. No fracture.
[2024-10-23 11:46] VITALS: BP 165/66; PULSE 76; RESP 16; TEMP 36.7; O2SAT 98
[2024-10-23] MEDS: ORPHENADRINE CITRATE 100 MG TABLET.ER PO (15:23)
[2024-10-23] MEDS: KETOROLAC (*BKC) 60 MG/2 ML VIAL IM (15:23)
[2024-10-23 15:25] LABS: BEDSIDEPREGUCG Negative (Negative)
[2024-10-23 15:32] LABS: Add Urine Microscopic? NO; Appearance Urine Clear (Clear); Bilirubin Urine Negative (Negative); Blood Urine Negative (Negative); Color Urine Yellow (Yellow); Glucose Urine UA 3+ mg/dL (Negative); Ketones Urine Negative (Negative); Leukocyte Esterase Ur Negative LEU/UL (Negative); Nitrate Urine Negative (Negative); Protein Urine Negative (Negative); Specific Grav Ur 1.042 (1.001-1.035)
--- NOTE | 2024-10-23 15:34 | ED_ITS ---
HPI - General Adult General Chief complaint: Fall Stated complaint: fall 5 days ago Time Seen by Provider: 10/23/24 14:26 History of Present Illness HPI narrative: Patient 39 very old female who presents emergency department with chief complaint of low back and buttock pain patient reports 5 days ago she fell down stairs reports no head injury denies loss of consciousness reports that she has pain in her low back and her pelvis that radiates down right gluteal area. Patient denies bowel or bladder incontinence denies numbness or tingling denies footdrop Related Data Allergies Allergy/AdvReac Type Severity Reaction Status Date / Time No Known Allergies Allergy Verified 10/23/24 14:36 Review of Systems Review of Systems: A 10 system review of systems was completed on the patient and is negative except for what is stated in the HPI. Nursing and ancillary documentation was reviewed. Exam Narrative: GENERAL: Well-appearing, well-nourished, and in no acute distress. HEAD: Normocephalic, atraumatic. EYES: PERRLA and EOMI. ENT: Nares clear, no rhinorrhea or epistaxis. Mucous membranes moist. NECK: Supple. CHEST: Clear to auscultation. No respiratory distress. HEART: Regular rate and rhythm. No murmur heard. Normal peripheral pulses. ABDOMEN: Soft, nontender, nondistended, normal active bowel sounds. EXTREMITIES: Normal range of motion. No edema. SKIN: Warm, dry, no rash. NEURO: No focal deficits. Alert and oriented x3. PSYCH: Normal mood and affect. Course Vital Signs Vital signs: Vital Signs Temperature 36.7 C 10/23/24 11:46 Pulse Rate 76 10/23/24 11:46 Respiratory Rate 16 10/23/24 11:46 Blood Pressure 165/66 H 10/23/24 11:46 Pulse Oximetry 98 10/23/24 11:46 Temperature 36.7 C 10/23/24 11:46 Pulse Rate 76 10/23/24 11:46 Respiratory Rate 16 10/23/24 11:46 Blood Pressure 165/66 H 10/23/24 11:46 Pulse Oximetry 98 10/23/24 11:46 Medical Decision Making [facility] Narrative Medical decision making narrative: Differential diagnosis includes UTI, lumbar contusion, lumbar fracture, sacral fracture Plain film x-rays obtained showed no evidence of fracture Urinalysis showed no evidence UTI Patient was started on anti-inflammatories muscle relaxers Vital Signs Vital Signs: Vital Signs Temperature 36.7 C 10/23/24 11:46 Pulse Rate 76 10/23/24 11:46 Respiratory Rate 16 10/23/24 11:46 Blood Pressure 165/66 H 10/23/24 11:46 Pulse Oximetry 98 10/23/24 11:46 Temperature 36.7 C 10/23/24 11:46 Pulse Rate 76 10/23/24 11:46 Respiratory Rate 16 10/23/24 11:46 Blood Pressure 165/66 H 10/23/24 11:46 Pulse Oximetry 98 10/23/24 11:46 Lab Data Labs: Lab Results 10/23/24 Range/Units 15:20 Urine Color Yellow (Yellow) Urine Appearance Clear (Clear) Urine pH 7.0 (5.0-9.0) Ur Specific [place] 1.042 H (1.001-1.035) Urine Protein Negative (Negative) mg/dL Urine Glucose (UA) 3+ H (Negative) mg/dL Urine Ketones Negative (Negative) mg/dL Ur Blood (Man) Negative (Negative) Urine Nitrate Negative (Negative) Urine Bilirubin Negative (Negative) Urine Urobilinogen 1.0 (<2.0) mg/dL Leukocyte Esterase Rfl Negative (Negative) JABARI/UL POC Urine HCG, Qual Negative (Negative) Discharge Plan Discharge Clinical Impression: Low back pain Patient Disposition: Home, Self-Care Condition: Stable Instructions: Antibiotic Form, Acute Low Back Pain (ED) Patient Language: Slovenian Prescriptions: New cyclobenzaprine 10 mg tablet 10 mg PO TID PRN (Reason: muscle spasm) Qty: 21 0RF diclofenac potassium 50 mg tablet 50 mg PO TID PRN (Reason: pain) Qty: 30 0RF No Action metformin 500 mg tablet 500 mg PO BID Qty: 60 0RF ibuprofen 800 mg tablet 800 mg PO TID PRN (Reason: pain) 7 Days Qty: 21 0RF acetaminophen 500 mg tablet 1,000 mg PO TID PRN (Reason: radames) 7 Days Qty: 42 0RF amoxicillin 500 mg capsule 500 mg PO Q12H Qty: 20 0RF ibuprofen 800 mg tablet 800 mg PO TID PRN (Reason: pain) 7 Days Qty: 21 0RF metformin 500 mg tablet 500 mg PO BID Qty: 60 0RF metformin 1,000 mg tablet 1,000 mg PO BID Qty: 60 0RF ciprofloxacin HCl [Cipro] 500 mg tablet 500 mg PO Q12H Qty: 14 0RF metformin 1,000 mg tablet 1,000 mg PO BID Qty: 60 0RF sulfamethoxazole-trimethoprim [Bactrim DS] 800-160 mg tablet 1 tablet PO Q12H Qty: 10 0RF famotidine [Pepcid] 20 mg tablet 20 mg PO DAILY Qty: 30 0RF Follow-up/Referrals: Tere,SHERICE Dunlap [Primary Care Provider] - Time of Disposition: 16:36
[2024-10-23 16:55] VITALS: BP 152/93; PULSE 72; RESP 18; TEMP 36.8; O2SAT 100
== END 2024-10-23 17:00 | disposition home or self-care (01) ==
PROVIDERS: Emergency Provider Emergency Medicine; PCP Physician Assistant
DX: M54.50 Low back pain, unspecified (principal); W10.9XXA Fall (on) (from) unspecified stairs and steps, initial encounter
CPT/HCPCS: 72100; 72220; 81003; 81025; 96372; 99283; A9270; J1885